=== PATIENT | female | born 1940 | race Caucasian/White ===

== ENCOUNTER → 2017-01-04 | Outpatient (REF) | LOC: ZLAB.WCH 12:59 | DX: Z01.89 Encounter for other specified special examinations (principal) ==

== ENCOUNTER → 2017-03-25 | Outpatient (REF) ==
[2017-03-25 11:58] LABS: THYROID STIMULATING HORMONE 19.1 uIU/mL (0.465-4.680)
== END ==
LOC: ZLAB.WCH 10:28
PROVIDERS: Family Medicine
DX: Z01.89 Encounter for other specified special examinations (principal)

== ENCOUNTER → 2017-07-16 | Outpatient (REF) ==
[2017-07-16 18:57] LABS: THYROID STIMULATING HORMONE 1.68 uIU/mL (0.465-4.680)
== END ==
LOC: ZLAB.WCH 18:06
PROVIDERS: Family Medicine
DX: Z01.89 Encounter for other specified special examinations (principal)

== ENCOUNTER → 2017-12-10 | Outpatient (CLI) | payer MEDICARE, BC | LOC: COL.VAS 13:07 | DX: I35.1 Nonrheumatic aortic (valve) insufficiency (principal); I37.1 Nonrheumatic pulmonary valve insufficiency; R09.89 Other specified symptoms and signs involving the circulatory and respiratory systems ==

== ENCOUNTER → 2017-12-10 | Outpatient (REF) | LOC: COL.CARD 16:09 | DX: R55 Syncope and collapse (principal) ==

== ENCOUNTER → 2018-01-19 | Outpatient (REF) ==
[2018-01-19 18:48] LABS: THYROID STIMULATING HORMONE 1.24 uIU/mL (0.465-4.680)
== END ==
LOC: ZLAB.WCH 18:00
PROVIDERS: Family Medicine
DX: Z01.89 Encounter for other specified special examinations (principal)

== ENCOUNTER → 2019-02-22 | Outpatient (REF) ==
[2019-02-22 11:01] LABS: THYROID STIMULATING HORMONE 3.53 uIU/mL (0.465-4.680)
== END ==
LOC: ZLAB.WCH 10:04
PROVIDERS: Family Medicine
DX: Z01.89 Encounter for other specified special examinations (principal)

== ENCOUNTER 2019-10-13 13:15 | Inpatient (IN) | payer MEDICARE, BC ==
[~2019-10-13] VITALS: Ht 162.6 cm; Wt 66.8 kg
--- NOTE | 2019-10-13 17:05 | NUR ---
Pt admitted, ZULEMA Schwartz started working with pt. Family at bedside, pt A&O, pleasantly cooperative. Visual deficit in left side. Pt wants to be full code, verified allergies, and pharmacy.
[2019-10-13] MEDS ORDERED: LIPITOR20 MG PO (17:18)
[2019-10-13] MEDS ORDERED: ASPIRIN 81M81 MG/TA2 PO (17:18)
[2019-10-13] MEDS ORDERED: PLAVIX 75MG TAB75 MG PO (17:18)
[2019-10-13] MEDS ORDERED: PEPCID 20MG TAB20 MG PO (17:19)
[2019-10-13] MEDS ORDERED: ZESTRIL 5MG5 MG PO (17:20)
[2019-10-13] MEDS ORDERED: TYLENOL 500MG500 MG PO (17:21)
[2019-10-13] MEDS ORDERED: FOSAMAX 70MG TA70 MG PO (17:23)
[2019-10-13] MEDS ORDERED: OCUVITE1 TA1 PO (17:24)
[2019-10-13] MEDS ORDERED: CALCIUM 600MG+D1 TAB PO (17:24)
[2019-10-13] MEDS ORDERED: ATROVENT NASAL15 ML NS (17:25)
[2019-10-13] MEDS ORDERED: SYNTHROID0.075 MG/T PO (17:26)
[2019-10-13] MEDS ORDERED: MELATONIN3 M1 PO (17:27)
[2019-10-13] MEDS ORDERED: VITAMINC1000TA PO (17:28)
[2019-10-13 18:30] VITALS: BP 150/71; PULSE 70; TEMP 99
[2019-10-13 18:32] VITALS: BP 150/71; PULSE 69; TEMP 99
--- NOTE | 2019-10-13 20:50 | NUR ---
Bedside report to LEANDRA Hughes. Pt in bed, alarm on, call lt in reach, HS dose of Tylenol given, reported to Ellen, pt wears glasses for reading.
--- NOTE | 2019-10-13 21:38 | NUR ---
PT RESTING IN BED. UNRELIEVED LT NECK STIFFNESS. KPAD STARTED. CASLL LIGHT.
[2019-10-14 05:44] VITALS: BP 157/64; PULSE 57; TEMP 98.4
--- NOTE | 2019-10-14 13:04 | NUR ---
Patient resting in recliner at this time, call light in reach, chair alarm on and sitting by her side. She attended therapies today and is a one assist with ambulation slightly dragging her left foot. Patient denies pain at this time.
--- NOTE | 2019-10-14 15:37 | NUR ---
Patient visiting with family at this time. She is resting in her recliner, call light in reach and alarm is on.
[2019-10-14 16:35] VITALS: BP 151/81; PULSE 63; TEMP 98.5
[2019-10-15 04:49] VITALS: BP 154/70; PULSE 62; TEMP 97.7
--- NOTE | 2019-10-15 07:00 | NUR ---
Report received from LEANDRA Hughes. PT in bed resting, wants to get up to bathroom, assisted with gait belt and walker. WIll continue to monitor.
--- NOTE | 2019-10-15 08:32 | NUR ---
Assessment charted. PT denies pain, strong transporter driver with left hand, leg does "stick to floor a bit but getting better when i walk". PT alert and oriented. Resting in chair at side of bed. Denies needs, will continue to monitor.
--- NOTE | 2019-10-15 12:54 | NUR ---
Patient lives in [place], [place] with her Luis Can (phone: [phone]) and due to her medical CVA symptoms per Dr. Alves she would be a great candidate for inpatient rehabilitation. Patient is semi-independent with daily living activities yet CVA symptoms have led to left hand numbness and need for her to receive assistance from her and family members. Patient's primary care physician is Richard Castro, her pharmacy is [facility], and she does have advance directives completed yet they are not on file with this hospital. office services manager will follow as needed.
[2019-10-15 15:34] VITALS: BP 148/80; PULSE 69; TEMP 98.6
--- NOTE | 2019-10-15 17:05 | NUR ---
Pt has done well today, resting in chair at side of bed. Up to bathroom very often with contact guard, doing well but gets tired after getting up all day for bathroom and having lots of visitors today. Resting in chair at side of bed eating, will give bedside shift report to NELIDA Redman who will resume care.
--- NOTE | 2019-10-15 20:30 | NUR ---
Pt doing well. Assessment completed. Alert and oriented with VSS. Ambulatory x1 assist to bathroom. x1 assist with nightly cares/dressing for bed. Denies pain or other needs at this time. Evening meds given. Pt in bed resting. Call light within reach, will continue to monitor
--- NOTE | 2019-10-16 00:07 | NUR ---
Pt had medium formed, soft, brown BM.
--- NOTE | 2019-10-16 04:12 | NUR ---
Pt has had uneventful night. Sleeping in bed. No concerns at this time. Call light within reach, will continue to monitor
[2019-10-16 04:44] VITALS: BP 150/72; PULSE 58; TEMP 97.6
--- NOTE | 2019-10-16 15:15 | NUR ---
Admission QIM scores were reviewed by the team. Code of 5 chosen for eating was determined by team discussion to be the best score as documentation was pt needed assistance with opening containers.--Marycarmen Wiley, PD
--- NOTE | 2019-10-16 15:45 | NUR ---
JAYSON met with the patient and her to discuss a family meeting date and time. The meeting is at 1300 on Wednesday, 10/17. JAYSON informed Marycarmen [facility] Director, JAYSON, and patient's nurse. account services analyst will continue to follow.
--- NOTE | 2019-10-16 17:20 | NUR ---
Report from LEANDRA Sawant, pt calls to toilet, reports pain to back of neck, one tylenol 325mg given. Pt declines K-Pad use. visited and several others. Pt has left visual field deficits, slight changes in speech. Alert, pleasant, takes pills whole with thin liquids. Set up assist for opening containers.
[2019-10-16 18:11] VITALS: BP 119/66; PULSE 70; TEMP 98.1
--- NOTE | 2019-10-16 19:09 | NUR ---
Bedside report to LEANDRA Martin. Pt in recliner with call lt in reach, BLE elevated.
--- NOTE | 2019-10-16 19:20 | NUR ---
Patient ambulates slowly/very small steps to the bathroom and voids/manages all toileting tasks. Sits up on side of bed and takes pills without problems. All meds reviewed. Rests self back in bed and SCD's applied. Patient denies pain at this time. States she's tired from full day of therapy.
[2019-10-17 05:18] VITALS: BP 146/66; PULSE 61; TEMP 97.9
--- NOTE | 2019-10-17 05:43 | NUR ---
PATIENT SITS UP IN RECLINER. STATES "YES I DID" TO GETTING SLEEP THIS NOC.
--- NOTE | 2019-10-17 08:40 | NUR ---
Patient working with ST at this time. She was a one assist with walker with transfering this morning from chair to bathroom. Patient pulled pants up and down and wiped herself with this nurse just setting items up for her.
--- NOTE | 2019-10-17 11:35 | NUR ---
Patient just returned from group therapy and is in her recliner eating her lunch. She denies pain or any questions at this time.
--- NOTE | 2019-10-17 14:00 | NUR ---
Pet Training Instructor participated in initial family conference with patient, patient's Luis, patient's friend Merle, and patient's sister DenisaRakel Conroy, IPR Director opened the meeting by explaining purpose and PT/OT/ST all reviewed patient progress and goals. Patient states she wants to be able to sing and read a poem at her [employer] program on 11/05/19. Patient also reports she has a three in one commode at home and grab bars are to be installed prior to discharge. Date of discharge is unknown at this time and will be reviewed at next team conference.
[2019-10-17 16:21] VITALS: BP 129/57; PULSE 69; TEMP 98
--- NOTE | 2019-10-17 17:35 | NUR ---
Patient attended all therapies today. She talked about all her hobbies she does at home: singing, playing instruments and needle work. She and of 22 years practiced some of there music today when working with therapy. Patient currently resting in recliner, call light in reach, chair alarm on and watching television. Denies pain or questions.
--- NOTE | 2019-10-18 00:36 | NUR ---
RESTING WITH EYES CLOSED, DOES NOT AWAKEN UPON ENTERING ROOM. BREATHING NONLABORED/EVEN. CALL LIGHT WITHIN PATIENT'S REACH.
[2019-10-18 05:09] VITALS: BP 141/65; PULSE 57; TEMP 97.5
--- NOTE | 2019-10-18 06:57 | NUR ---
REPORT GIVEN TO DAY SHIFT NURSEKEYSHAWN. PATIENT RESTING IN CHAIR, NO COMPLAINTS CURRENTLY. CALL LIGHT WITHIN REACH.
[2019-10-18 07:10] LABS: BASO % 0.4 % (0.0-2.0); EOS # 0.2 (0.0-0.7); EOS % 2.6 % (0-4.0); GRAN # 4.6 (1.4-6.5); GRAN % 57.4 % (42.2-75.2); HEMATOCRIT 40.3 % (37.0-47.0); HEMOGLOBIN 12.7 g/dl (12.5-16.0); LYMPH # 2.2 (1.2-3.4); LYMPH % 27.5 % (20.0-51.0); MEAN CELL VOLUME 86 fl (80.0-100.0); MEAN CORPUSCULAR HEMOGLOBIN 27 pg (27.0-31.0); MEAN CORPUSCULAR HGB CONC 32 g/dl (33.0-37.0); MEAN PLATELET VOLUME 10.8 fl (7.4-10.4); MONO # 0.9 (0.1-0.6); MONO % 11.6 % (1.7-9.3); PLATELET COUNT 307 K/mm3 (130-400); REDCELL DISTRIBUTION WIDTH-CV 14.7 % (11.5-14.5)
[2019-10-18 07:27] LABS: CALCIUM 10.1 mg/dL (8.4-10.2); CREATININE, serum 0.92 (0.52-1.25); MAGNESIUM 2.1 mg/dL (1.6-2.3); POTASSIUM 4.5 mmol/L (3.4-5.0)
--- NOTE | 2019-10-18 07:36 | NUR ---
Patient was set up for grooming this morning, brushed teeth independently and ate independently. She was a one assist with transfer to and from her recliner to the bathroom. Patient denies pain at this time. Will continue to monitor.
--- NOTE | 2019-10-18 10:11 | NUR ---
Patient one assist with gait belt and walker to the bathroom. Patient pulled pants up and down and wiped herself all independently only requiring steadying when standing. Urine was light yellow in color and clear.
--- NOTE | 2019-10-18 16:58 | NUR ---
Aviation Technician Aircraft met with patient and patient's to review team conference notes and provide copy to patient. SW reviewed need for shower seat and outpatient PT/OT and possibly ST. Patient advised she would like to set up outpatient therapies at [facility]. SW to continue to follow.
[2019-10-18 18:00] VITALS: BP 135/66; PULSE 68; TEMP 98.5
--- NOTE | 2019-10-18 20:30 | NUR ---
REPORT RECEIVED FROM DAY SHIFT NURSE. TOILETING/HS CARE DONE PER PATIENT REQUEST. DENIES ANY DISCOMFORT OR NEEDS CURRENTLY. CALL LIGHT WITHIN REACH. BED IN LOW POSITION.
--- NOTE | 2019-10-19 01:34 | NUR ---
RESTING WITH EYES CLOSED, DOES NOT AWAKEN WHEN ROOM ENTERED. CALL LIGHT WITHIN PATIENT'S REACH. BED IN LOW POSITION.
--- NOTE | 2019-10-19 04:58 | NUR ---
REPORTS HER LEFT VISUAL FIELD HAS IMPROVED SOME SINCE ADMISSION TO [facility]. UP IN CHAIR BATHROOM ACTIVITY, CALL LIGHT WITHIN REACH, CHAIR ALARM SET.
[2019-10-19 05:04] VITALS: BP 126/71; PULSE 55; TEMP 98
--- NOTE | 2019-10-19 07:35 | NUR ---
REPORTS SINUS HEADACHE DURING SHIFT REPORT TO DAY NURSE. SITTING UP IN CHAIR, CHAIR ALARM SET
--- NOTE | 2019-10-19 08:23 | NUR ---
Bedside report from LEANDRA Hodges. Pt to chair for breakfast, set up for oral cares afterwards, still has left visual deficits. Tylenol for headache/neck/and left lateral chest pain under breast. Turned alarm on. Call lt in reach.
[2019-10-19 15:56] VITALS: BP 112/55; PULSE 65; TEMP 98.2
--- NOTE | 2019-10-19 16:24 | NUR ---
Pt's family and friends visited today, pt rested in chair with feet up. Cont to have left visual deficits but pt states it is improving.
--- NOTE | 2019-10-19 19:41 | NUR ---
Bedside report to Renzo, Mery. Pt in chair with BLE up and call lt in reach, chair alarm on, denies any needs at this time. Turned K-PAD on but pt denied wanting to use it.
--- NOTE | 2019-10-19 20:00 | NUR ---
SITTING UP IN CHAIR, CHAIR ALARM SET. REPORTS SOME SINUS HEADACHE AND SOME POST NECK STIFFNESS. REPORTS HAS HAD X3 STOOLS, DOES NOT WANT HS STOOL MEDS.
--- NOTE | 2019-10-20 00:56 | NUR ---
RESTING IN BED WITH EYES CLOSED, DOES NOT AWAKEN WHEN ROOM ENTERED. BREATHING NONLABORED AND EVEN. BED ALARM ON.
[2019-10-20 04:57] VITALS: BP 109/86; PULSE 88; TEMP 97.7
--- NOTE | 2019-10-20 07:19 | NUR ---
PATIENT UP IN CHAIR EATING BREAKFAST DURING SHIFT CHANGE REPORT TO DAY SHIFT NURSE. NO COMPLAINTS CURRENTLY. CHAIR ALARM ON.
--- NOTE | 2019-10-20 08:11 | NUR ---
Bedside report from LEANDRA Hodges. Pt to chair for breakfast with grippers, alarm, call lt in reach, took meds with water.
--- NOTE | 2019-10-20 12:15 | NUR ---
Lunch: Pt to chair, did not care for spices in food. Woman visitor here. Pt denies pain.
[2019-10-20 15:10] VITALS: BP 118/61; PULSE 59; TEMP 97.2
--- NOTE | 2019-10-20 16:14 | NUR ---
See assessment for left breast and left great toe.
--- NOTE | 2019-10-20 16:28 | NUR ---
Scissors Sharpener met with patient and patient's to inquire about any questions or concerns. Patient states she has no concerns or questions and is feeling better than she was yesterday. SW to continue to follow.
--- NOTE | 2019-10-21 00:30 | NUR ---
Pt. laying in bed at this time. Pt. is A&OX3, assessment complete. Pt. reports mild pain at this time. Will give meds per orders. Pt. denies further needs, call light within reach.
[2019-10-21 04:18] VITALS: BP 127/52; PULSE 59; TEMP 97.7
--- NOTE | 2019-10-21 09:02 | NUR ---
Patient resting in recliner at this time, describing what it was like when she originally had a stroke. Patient reported some neck pain, refused any pain meds at this time. Denied any questions at this time.
--- NOTE | 2019-10-21 10:09 | NUR ---
Patient did her own grooming this morning while sitting in her wheelchair. She was independent on pulling pants up and down and wiping herself as well. Denies pain at this time. Will continue to monitor.
[2019-10-21 16:39] VITALS: BP 108/53; PULSE 66; TEMP 98.1
--- NOTE | 2019-10-21 17:45 | NUR ---
Patient attended all therapies today. Her sons stopped by this afternoon to visit with her and she saw one of her grand kids. She was a one assist with transfer to the toilet only needing a few ques to direct her to delinquency prevention social worker front of toilet before sitting down. She is currently resting in recliner, call light in reach and chair alarm is on.
--- NOTE | 2019-10-21 18:37 | NUR ---
Patient watching TV in her room, denies any questions at this time. She wants to wait to go to bed a little later. Reported off to night nurse.
--- NOTE | 2019-10-21 19:51 | NUR ---
Pt. laying in bed at this time. Pt. is A&OX3, assessment complete. Pt. reported headache and neck pain at a 3 on pain scale, gave Tylenol per orders. Pt. denies further needs at this time. Call light within reach.
[2019-10-22 04:16] VITALS: BP 130/54; PULSE 57; TEMP 98.3
--- NOTE | 2019-10-22 05:41 | NUR ---
Pt. slept well through the night. Pt. remains A&OX3. Pt. able to dress self this am. pt. sitting up in chair at this time. Pt. denies pain or other needs, call light within reach.
--- NOTE | 2019-10-22 07:26 | NUR ---
Patient up and eating breakfast at this time. Reporting some neck stiffness and given prn tylenol. Call light in reach, chair alarm on and slip proof socks on. Will continue to monitor.
--- NOTE | 2019-10-22 09:39 | NUR ---
Patient's arrived and they are visiting in patient room.
--- NOTE | 2019-10-22 12:34 | NUR ---
Patient resting in recliner with family by her side visiting. Patient denies pain at this time and agreed to go for a walk later this afternoon.
--- NOTE | 2019-10-22 14:58 | NUR ---
Patient visiting with family and friends at this time.
[2019-10-22 16:06] VITALS: BP 104/55; PULSE 72; TEMP 98.6
--- NOTE | 2019-10-22 18:32 | NUR ---
Patient resting in bed at this time, call light in reach and chair alarm is on. Patient was a one assist to the bathroom this evening. Denies pain or questions at this time. Reported off to night nurse.
--- NOTE | 2019-10-22 20:00 | NUR ---
PATIENT UP IN CHAIR DURING SHIFT CHANGE REPORT FROM DAY SHIFT NURSE. PATIENT DENIES ANY DISCOMFORT, REQUESTS EXTRA STRENGTH TYLENOL WITH HS MEDS. CHAIR ALARM ON. REPORTS FEELING SOME WEAKNESS TO LEFT SIDE, OBSERVED GAIT STEADY BUT SLOW MOVEMENTS BY PATIENT. REPORTS LEFT VISUAL FIELD HAS IMPROVED SOME BUT STILL HAS PARTIAL DEFICIT VISION TO LEFT EYE.
--- NOTE | 2019-10-22 21:42 | NUR ---
RESTING QUIETLY IN BED, WITH EYES CLOSED, DOES NOT AWAKEN WHEN ROOM ENTERED. BREATHING NONLABORED/EVEN. BED ALARM ON.
[2019-10-23 05:13] VITALS: BP 123/73; PULSE 53; TEMP 97.6
--- NOTE | 2019-10-23 07:39 | NUR ---
Bedside report from LEANDRA Hodges. Pt in chair eating breakfast, had two BM's this morning, pain 1/10 to back of neck, A&O, pleasant, requests OP at [facility]. Would like to leave Wednesday before 6pm for choir practice. Informed pt typical discharge is between lunch and supper, keep plans flexible.
--- NOTE | 2019-10-23 09:53 | NUR ---
Pt's pharmacy reports her new meds were already picked up: aspirin, atorvastatin, clopidogrel, famotidine, lisinopril.
--- NOTE | 2019-10-23 10:07 | NUR ---
Faxed face sheet and H&P to PCP Dr. Carina Castro and [facility] PT/OT offices.
--- NOTE | 2019-10-23 10:28 | NUR ---
Pt's visiting, verified he picked up meds from [facility]. Pt working on homework from .
--- NOTE | 2019-10-23 11:57 | NUR ---
Received "OK" fax receipts from [facility] and PT/OT
--- NOTE | 2019-10-23 15:41 | NUR ---
JAYSON met with the patient and the patient's to introduce oneself and to follow up. The patient reports that she is doing fine and has no questions or concerns for discharge. She states that she just hopes to be out of here on time for choir practice. The patient preferred and has been set up at [facility] for outpatient PT/OT/ST. JAYSON to continue to follow.
[2019-10-23 15:56] VITALS: BP 123/60; PULSE 63; TEMP 98
--- NOTE | 2019-10-23 20:00 | NUR ---
PATIENT UP IN CHAIR DURING SHIFT CHANGE REPORT FROM DAY SHIFT NURSE. UP MOD INDEP IN ROOM WITH NO PROBLEMS. DENIES ANY NEEDS CURRENTLY.
--- NOTE | 2019-10-24 00:57 | NUR ---
RESTING WITH EYES CLOSED, DOES NOT AROUSE WHEN ROOM ENTERED. BREATHING NONLABORED AND EVEN. UP MOD INDEP IN ROOM WITH NO PROBLEMS
[2019-10-24 05:11] VITALS: BP 116/56; PULSE 62; TEMP 98
--- NOTE | 2019-10-24 05:46 | NUR ---
MOD INDEP IN ROOM WITH NO PROBLEMS THROUGH THE NIGHT.
--- NOTE | 2019-10-24 07:00 | NUR ---
up in chair ready for breakfast, bedside shift report received from LEANDRA Weeks
--- NOTE | 2019-10-24 07:06 | NUR ---
Patient resting in chair during shift change report given to day shift nurse. Continues to be mod I in room with no problems.
--- NOTE | 2019-10-24 08:35 | NUR ---
am meds given, medicated with tylenol 325mg per her request for minor discomfort, speech therapy in to work with patient
--- NOTE | 2019-10-24 08:35 | NUR ---
speech therapy in to work with patient
--- NOTE | 2019-10-24 10:40 | NUR ---
resting in chair visiting with , full assessment completed see interventions for further info
--- NOTE | 2019-10-24 11:54 | NUR ---
up in chair and eating lunch
--- NOTE | 2019-10-24 14:33 | NUR ---
resting in chair visiting with and friend
[2019-10-24 15:53] VITALS: BP 123/60; PULSE 68; TEMP 98.2
--- NOTE | 2019-10-24 21:30 | NUR ---
Patient rests in bed and awakened for HS meds. Alert and oriented x 4. Is modified independent in room and call light and walker in reach. HS meds all reviewed and given. Reports had bm this am but does want bowel meds and miralax given in applejuice. Declines snack.
--- NOTE | 2019-10-24 22:39 | NUR ---
Patient rests with eyes closed. Respirations with ease.
--- NOTE | 2019-10-25 03:00 | NUR ---
Patient rests in bed with eyes closed. Respirations with ease.
[2019-10-25 05:22] VITALS: BP 131/71; PULSE 57; TEMP 97.8
--- NOTE | 2019-10-25 09:00 | NUR ---
The patient is to discharge back home with her today, 10/25, and outpatient PT/OT/ST at [facility]. SW met with the patient and her and presented and explained the IM form to the patient. The patient verbalized understanding, signed, and she was provided a copy. The patient had no other questions or concerns about discharge. No additional needs at this time.
[2019-10-25] MEDS ORDERED: PEPCID 20MG TAB20 MG PO (10:08)
--- NOTE | 2019-10-25 12:18 | NUR ---
Reviewed discharge instructions with pt, spouse. Pt will eat lunch and call when ready to discharge.
--- NOTE | 2019-10-25 19:58 | NUR ---
Printed Pt health summary, discharge summary and home med list and reviewed with pt and . Stressed importance of follow up appts. Reviewed meds, and pt asked about taking prunes instead of PRN OTC bowel meds, enc prunes but take Colace or Senna as directed for constipation. Prescriptions were previously picked up from pt's pharmacy by spouse. Stressed importance of checking on dose and frequency since meds were changed here, verbalized understanding and nurse circled med list, copy to chart. Belongings gathered by pt/spouse, including glasses, purse, clothes, shoes, returned nasal spray, pt states her walker is at home. Pt transported via wheelchair by JEROMY Garcia for ride home, very grateful for cares. Pt and spouse denied any questions.
--- NOTE | 2019-10-25 20:01 | NUR ---
Faxed Face sheet, H&P, latest progress note and discharge summary to Dr. Pena, neuro in [place]. Received "OK" fax report. Faxed DC summary and latest Dr/PT/OT notes to [facility] PT, OT. Received "OK" fax report. Faxed DC summary and latest Dr. note to PCP, received "OK" fax report.
== END 2019-10-25 12:22 | disposition home or self-care (01) | DRG 56 ==
PROVIDERS: ADMIT Internal Medicine
DX: G81.94 Hemiplegia, unspecified affecting left nondominant side (principal); I63.9 Cerebral infarction, unspecified; I10 Essential (primary) hypertension; E03.9 Hypothyroidism, unspecified; Z79.82 Long term (current) use of aspirin; Z79.02 Long term (current) use of antithrombotics/antiplatelets; Z90.710 Acquired absence of both cervix and uterus; Z88.2 Allergy status to sulfonamides; Z88.8 Allergy status to other drugs, medicaments and biological substances; K59.00 Constipation, unspecified
CPT/HCPCS: 99222-AI; 99232-AI; 99239; J1650

== ENCOUNTER → 2021-09-30 | Outpatient (CLI) | payer MEDICARE, BC ==
[~2021-09-30] MED LIST: ASPIRIN 81M81 MG/TA2 PO; ATROVENT NASAL15 ML NS; CALCIUM 600MG+D1 TAB PO; FOSAMAX 70MG TA70 MG PO; LIPITOR20 MG PO; MELATONIN3 M1 PO; OCUVITE1 TA1 PO; PEPCID 20MG TAB20 MG PO; PLAVIX 75MG TAB75 MG PO; SYNTHROID0.075 MG/T PO; TYLENOL 500MG500 MG PO; VITAMINC1000TA PO; ZESTRIL 5MG5 MG PO
== END ==
LOC: COL.RAD 12:44
DX: R13.10 Dysphagia, unspecified (principal)

== ENCOUNTER 2021-10-28 11:15 | Outpatient (RCR) | payer MEDICARE, BC | END 2021-11-14 | disposition home or self-care (01) | LOC: WSST | DX: R13.10 Dysphagia, unspecified (principal) ==